=== PATIENT | male | born 1940 | race Caucasian/White ===

== ENCOUNTER → 2016-12-28 | Outpatient (CLI) | payer MEDICARE ==
[~2016-12-28] MED LIST: AMLO5TAB2 PO; ASPI1TAB69 PO; ASPI81TA82 PO; ATOR1TAB18 PO; ATOR80TA PO; CARV6.25 PO; CARV6.252 PO; COQ-100C2 PO; COUM5TAB PO; COUM6TAB PO; D31000CA PO; E-40CAP PO; FISH1000 PO; FISH1200 PO; FOLI400T PO; GARL1CAP PO; HYDR-3516 PO; HYDR12.56 PO; HYDR12.57 PO; IRBE150T15 PO; IRBE150T49 PO; ISOS60 PO; MISC1CAP2 PO; NITR.3 SL; SAW500CA6 PO; TAB-TAB PO; VITA400C5 PO; WALKER WHEELS/F1 MIS; XARE20TA PO; ZINC100T PO; [UNRECOGNIZED DRUG - CODE] PO
[2016-12-28 13:26] LABS: HEMOGLOBIN A1b 1.5 %; HEMOGLOBIN Ao 85.3 %; HEMOGLOBIN P3 5.5 %
== END ==
LOC: CLAB 10:29
PROVIDERS: ATTEND Family Medicine
DX: I10 Essential (primary) hypertension (principal); E78.2 Mixed hyperlipidemia; I25.10 Atherosclerotic heart disease of native coronary artery without angina pectoris; I48.0 Paroxysmal atrial fibrillation; Z12.5 Encounter for screening for malignant neoplasm of prostate; E03.8 Other specified hypothyroidism; E55.9 Vitamin D deficiency, unspecified; Z79.899 Other long term (current) drug therapy
CPT/HCPCS: 36415; 82306; 83036; 84402; 84403; G0103

== ENCOUNTER 2017-01-19 12:19 | Inpatient (IN) | payer MEDICARE ==
[~2017-01-19] VITALS: Ht 167.6 cm; Wt 87.0 kg
[2017-02-01] MEDS ORDERED: FOLI400T PO (15:06)
[2017-02-01] MEDS ORDERED: XARE20TA PO (15:06)
[2017-02-01] MEDS ORDERED: COQ-100C2 PO (15:06)
[2017-02-01] MEDS ORDERED: CARV6.252 PO (15:06)
[2017-02-01] MEDS ORDERED: ATOR1TAB18 PO (15:06)
[2017-02-01] MEDS ORDERED: VITA400C5 PO (15:06)
[2017-02-01] MEDS ORDERED: MISC1CAP2 PO (15:06)
[2017-02-01] MEDS ORDERED: AMLO5TAB2 PO (15:06)
[2017-02-01] MEDS ORDERED: D31000CA PO (15:06)
[2017-02-01] MEDS ORDERED: HYDR12.57 PO (15:06)
[2017-02-01] MEDS ORDERED: FISH1000 PO (15:06)
[2017-02-01] MEDS ORDERED: IRBE150T15 PO (15:06)
[2017-02-01] MEDS ORDERED: GARL1CAP PO (15:06)
[2017-02-01] MEDS ORDERED: ASPI1TAB69 PO (15:06)
--- NOTE | 2017-02-08 10:01 | MH ---
cc: JESSIKA OTERO DATE OF ADMISSION: 02/10/2017 ADMITTING DIAGNOSIS: Severe osteoarthritis of the left knee, varus deformity left knee patellofemoral disorder left knee, pain left knee. HISTORY The patient is a 76-year-old white male who has had a rather lengthy history of pain involving his left knee extending back for at least seven or more years with onset being unrelated to injury. 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 A number of years ago. He did undergo orthopedic evaluation being uncertain with regards to a specific diagnosis but reported that he was advised to consider operative intervention. He elected to continue with conservative management for which he did receive a cortisone injection that he did not find to be of any appreciable benefit. He did not seek any further disposition over the following years and during this period of time he was followed by his primary care physician, while utilizing aspirin for pain management. In the more recent past she was encouraged to proceed with orthopedic evaluation because of increasing symptoms about his left knee and was subsequently seen by the undersigned physician in December of this year. At that time the patient reported ongoing difficulty with regards to all forms of weightbearing activities. His x-ray studies revealed severe degenerative changes with [id number] apposition about the medial compartment associated with a varus deformity of at least 20 degrees magnitude and secondary involvement of the patellofemoral articulation. Findings and treatment options were reviewed with the patient at that time the pros and cons of continuing with conservative management versus operative intervention that would involve a total knee arthroplasty were outlined in detail. Emphasis was made regarding the fact that the decision to proceed with surgery would be left entirely to the patient's discretion. The patient readily admitted that he felt his symptoms had progressed to a point in time where he was desirous of such treatment and in compliance with his wishes he is currently being admitted in order that the above be accomplished. PAST MEDICAL HISTORY/HOSPITALIZATIONS/SURGERIES: Have and deluded to separate cardiac bypass procedures as well as the stent insertion. He has also undergone previous colonoscopy and medical management for an infected left lower extremity at the site of a previous vein graft harvesting as related to his open heart surgery. MEDICAL ILLNESSES: The patient's medical illnesses include hypertension and heart disease. MEDICATIONS current medications 1. Amlodipine 5 mg daily. 2. Carvedilol 6.25 mg twice daily 3. Xarelto 20 mg daily 4. Irbesartan 150 mg daily. 5. Hydrochlorothiazide 12.5 mg daily. 6. Avastin 80 mg daily. 7. CoQ10 8. Garlic. 9. Vitamin E 10. Vitamin D3. 11. Saw palmetto 12. Fish oil. 13. Aspirin. 14. Folic acid ALLERGIES The patient denies any known drug allergies. REVIEW OF SYSTEMS He does wear glasses. He has had a history of migraine headaches. No seizure or syncope. Occasional sinus congestion. There is a history of epistaxis in the past. Diminished auditory acuity more pronounced in the right ear. He wears complete dentures. There is a history of pneumonia and denies cough or tuberculosis. No angina. He has had a heart attack in the past. He is status post open heart surgery as well as stent insertion. Appetite is good bowel movements are regular. There is been no hepatitis, gallbladder disease or ulcers. There is a positive history of hemorrhoids. No urinary tract infection. No kidney stones. Fracture of the left clavicle no psychiatric illness. His remaining review of systems is unremarkable and noncontributory. FAMILY HISTORY The patient has been for over 33 years but he has co habituated with a significant other for more than 30 years. He has three sons and two daughters by his previous marriage all indicated to be in good health. FAMILY HISTORY: Family history is otherwise positive for hypertension, diabetes, tuberculosis, heart and kidney disease. SOCIAL HISTORY The patient completed a tenth grade education. He describes himself as being somewhat retired as a plaster he denies active use of tobacco for more than 30 years but had been greater than a three pack per day user for at least 20 years prior to that time. No ethanol consumption. PHYSICAL EXAMINATION VITAL SIGNS: Height 5 feet 6-[address] to 180 pounds. HEAD, EYES, EARS, NOSE, AND THROAT: an alert, oriented responsive 76-year-old white male who sits quietly upon examination table with no obvious distress. Eyes, nose and throat pupils are equal, round and reactive to light. Extraocular movements full. Sclerae clear. External nares clear. External auditory canals clear. Edentulous. Mucous membranes pink and moist. Pharynx clear. NECK: The neck is supple. Active range of motion without appreciable pain. Carotid pulse bilaterally. Trachea midline. Thyroid without enlargement. LUNGS: Clear to auscultation and percussion. No CVA tenderness. No discomfort throughout the dorsal lumbar spine. Heart: Regular rhythm. No murmur or gallop. ABDOMEN: The abdomen is soft, nontender. Bowel sounds present. RECTAL: Per primary care physician. EXTREMITIES: Left knee. An obvious varus deformity with medial joint line tenderness. Apprehension and compression sign negative. Zero to 105 degrees range of motion with discomfort at the extreme of flexion and subtle suggestion for crepitation. No collateral ligamentous instability. Vin test and drawer sign negative. Pivot shift and Caleb sign positive for medial compartment pain. Straight-leg raising unremarkable at 80 degrees a well-healed surgical wound along the medial aspect of the calf area consistent with graft harvesting for open heart surgery. Distal sensory grossly intact. Antalgic gait. NEUROLOGIC: Cranial nerves II-XII grossly intact. IMPRESSION Severe osteoarthritis of the left knee, varus deformity left knee patellofemoral disorder left knee, pain left knee PLAN Left total knee arthroplasty. The nature of the planned surgical procedure the potential complications and risks associated the expectations of surgery and the consent form were thoroughly reviewed with the patient in the presence of his significant other prior to admission to the hospital. Mr. Andres has indicated his full understanding regarding all of the above and given consent to proceed with treatment as outlined. Medical evaluation and clearance for surgery will be completed by his primary care physician Dr. Gus Hung cardiology clearance per Dr. Pichardo. MD LEROY Page/brian /1:45 PM /10:00 AM
[2017-02-10 06:25] VITALS: BP 168/70; PULSE 58; RESP 20; TEMP 97.9; O2SAT 96
[2017-02-10] MEDS ORDERED: ceFAZolin 2 GM PREMIX 50 ML ONE (06:37)
[2017-02-10] MEDS ORDERED: TRANEXAMIC ACID 1 GM POST-OP IV SCH ×2 (06:45)
[2017-02-10] MEDS ORDERED: TRANEXAMIC ACID 1 GM PRIOR TO PROCEDURE IV SCH ×2 (06:45)
[2017-02-10] MEDS: POVIDONE IODINE 7.5% SCRUB 118 ML BOTTLE TOPICAL SCH (06:45)
[2017-02-10] MEDS ORDERED: ceFAZolin 2 GM PREMIX 50 ML IV SCH (06:45)
[2017-02-10] MEDS ORDERED: fentaNYL CITRATE 250 MCG/5 ML AMP ONE (06:56)
[2017-02-10] MEDS ORDERED: CHLORHEXIDINE GLUCONATE 2 % 1 PACK (2 CLOTHS) TOPICAL PRN (07:00)
[2017-02-10] MEDS ORDERED: SODIUM CHLORID 0.9% 500 ML IV PRN (07:00)
[2017-02-10] MEDS ORDERED: POVIDONE IODINE 5% (ANTISEPSIS KIT) 4 APPLICATIONS EACH NARE PRN (07:00)
[2017-02-10] MEDS ORDERED: INSULIN HUMAN REGULAR 1,000 UNITS/10 ML VIAL SQ PRN (07:00)
[2017-02-10] MEDS ORDERED: LACTATED RINGER'S 1000 ML IV PRN (07:00)
[2017-02-10] MEDS ORDERED: METOPROLOL TARTRATE 25 MG TAB PO PRN (07:00)
[2017-02-10] MEDS ORDERED: FAMOTIDINE 20 MG/2 ML VIAL ONE (07:06)
[2017-02-10] MEDS ORDERED: MIDAZOLAM HCL 2 MG/2 ML VIAL ONE (07:06)
[2017-02-10] MEDS ORDERED: ceFAZolin INJ 1,000 MG VIAL ONE (08:12)
[2017-02-10] MEDS ORDERED: BUPIVACAINE HCL PF 0.5% 30 ML VIAL NERV BLOCK ONE (08:27)
[2017-02-10] MEDS ORDERED: SODIUM CHLORIDE 0.9% FLUSH 5 ML FLUSH IVF PRN (10:00)
[2017-02-10] MEDS ORDERED: ZOLPIDEM TARTRATE 5 MG TAB PO PRN (10:00)
[2017-02-10] MEDS ORDERED: ACETAMINOPHEN/HYDROcodone 325 MG/5 MG TAB PO PRN (10:00)
[2017-02-10] MEDS ORDERED: NALOXONE HCL 0.4 MG/ML AMP IV PRN (10:00)
[2017-02-10] MEDS ORDERED: Post-op Orders (for Pharmacy) MISC XX ONE (10:00)
[2017-02-10] MEDS ORDERED: DOCUSATE SODIUM 100 MG CAP PO PRN (10:00)
[2017-02-10] MEDS ORDERED: diphenhydrAMINE HCL 25 MG CAP PO PRN (10:00)
[2017-02-10] MEDS ORDERED: MISCELLANEOUS PHARMACY INFORMATION XX ONE (10:00)
[2017-02-10] MEDS ORDERED: TRANEXAMIC ACID INJ 1,000 MG in SODIUM CHLORIDE 0.9% INJ 100 ML IV SCH (10:00)
[2017-02-10] MEDS ORDERED: ACETAMINOPHEN 325 MG TAB PO PRN (10:00)
[2017-02-10] MEDS ORDERED: ONDANSETRON HCL 4 MG/2 ML VIAL IVP PRN (10:00)
--- NOTE | 2017-02-10 10:39 | RADRPT ---
EXAM DATE/TIME: 02/10/2017 11:11 [facility] COMPARISON: No previous studies available for comparison. INDICATIONS : Post op left knee replacement. MEDICAL HISTORY : None. SURGICAL HISTORY : None. ENCOUNTER: Initial ACUITY: 1 day PAIN SCORE: 0/10 LOCATION: Left knee FINDINGS: 2 images are performed status post total knee arthroplasty. The hardware is intact and the osseous s tructures are in near-anatomic alignment. There is a 1.1 cm bony fragment adjacent and superior to t he patella. Deep soft tissue gas about the joint space and [address] Multiple cli ps are seen in the distal thigh and proximal leg medially. CONCLUSION: Postoperative changes from total knee arthroplasty. Vignesh Buckley MD on February 10, 2017 at 10:37 Board Certified Radiologist. This report was verified electronically.
[2017-02-10] MEDS ORDERED: MORPHINE SULFATE 30 MG/30 ML PCA IV SCH (11:00)
[2017-02-10] MEDS ORDERED: DO NOT ADM ANY ANTICOAGULANT DRUGS PRN (11:15)
[2017-02-10] MEDS ORDERED: KETOROLAC TROMETHAMINE 60 MG/2 ML (IM) VIAL IM ONE (12:00)
[2017-02-10] MEDS ORDERED: ePHEDrine/NS 25 MG/5 ML SYR IV ONE (12:00)
[2017-02-10] MEDS ORDERED: PROPOFOL 200 MG/20 ML AMP IV ONE (12:00)
[2017-02-10] MEDS ORDERED: ONDANSETRON HCL 4 MG/2 ML VIAL IV PUSH ONE (12:00)
[2017-02-10 13:15] VITALS: BP 123/58; PULSE 55; RESP 18; TEMP 97.5; O2SAT 95
[2017-02-10] MEDS: PCA - TOTAL MG MORPHINE DELIVERED PER SHIFT SCH ×2 (14:00→22:00)
[2017-02-10 16:40] VITALS: BP 120/55; PULSE 64; RESP 20; TEMP 96.7; O2SAT 95
[2017-02-10 18:33] VITALS: O2SAT 95
[2017-02-10 19:57] VITALS: BP 131/56; PULSE 57; RESP 20; TEMP 96.9; O2SAT 95
[2017-02-10] MEDS: SODIUM CHLORIDE 0.9% FLUSH 5 ML FLUSH IVF SCH (20:24)
[2017-02-10] MEDS: DEXT 5%-NACL 0.45% 1000 ML INJ 1,000 ML IV SCH (20:43)
--- NOTE | 2017-02-10 22:26 | PD.CONS ---
History of Present Illness Service primary care Consult Requested By Sarah Leonard MD Reason for Consult medical management Primary Care Physician Gus Hung DO Diagnoses: History of Present Illness pt with [facility] hx of severe debilitating djd left knee Review of Systems Musculoskeletal: COMPLAINS OF: Joint pain, Stiffness, Joint Swelling Past Family Social History Allergies: Coded Allergies: LUIS Inhibitors (Verified Adverse Reaction, Intermediate, 02/10/17) cough Past Medical History a-fib htn hpld Past Surgical History CAD stent CABG Active Ordered Medications Current Medications Medications (Trade) Dose Ordered Sig/Pradip Route PRN Reason Start Time Stop Time Status Last Admin Dose Admin Povidone Iodine 1 applic 1 applic ONCE TOPICAL 02/10/17 06:45 02/13/17 06:44 02/10/17 06:45 Lactated Ringer's 1,000 ml @ 30 mls/hr Q24H PRN IV SEE LABEL COMMENTS 02/10/17 07:00 02/13/17 06:59 02/10/17 06:32 Sodium Chloride (NS 500 ml Inj) 500 ml @ 30 mls/hr [id number] PRN IV SEE LABEL COMMENTS 02/10/17 07:00 02/13/17 06:59 IV Flush (NS Flush) 2 ml UNSCH PRN IVF FLUSH AFTER USING IV ACCESS 02/10/17 10:00 IV Flush 2 ml 2 ml BID IVF 02/10/17 21:00 Cefazolin Sodium/ Sodium Chloride (Ancef Inj/NS Inj) 100 ml @ 200 mls/hr Q6H IV 02/10/17 15:00 02/11/17 03:29 02/10/17 21:17 Rivaroxaban (Xarelto) 10 mg Q24H PO 02/11/17 09:00 Acetaminophen/ Hydrocodone Bitart ([place] 5-325 Mg) 1 tab Q4H PRN PO PAIN LESS THAN 5 ON SCALE 02/10/17 10:00 Acetaminophen/ Hydrocodone Bitart ([place] 5-325 Mg) 2 tab Q4H PRN PO PAIN SCALE 5 TO 10 02/10/17 10:00 Acetaminophen (Tylenol) 650 mg Q6H PRN PO Temp > 101 02/10/17 10:00 Ondansetron HCl (Zofran Inj) 4 mg Q6H PRN IVP NAUSEA OR VOMITING 02/10/17 10:00 Docusate Sodium (Colace) 100 mg BID PRN PO constipation 02/10/17 10:00 Zolpidem Tartrate (Ambien) 5 mg HS PRN PO SLEEP 02/10/17 10:00 Naloxone HCl (Narcan Inj) 0.4 mg UNSCH PRN IV RESPIRATORY RATE LESS THAN 10 02/10/17 10:00 Diphenhydramine HCl (Benadryl) 25 mg Q6H PRN PO ITCHING 02/10/17 10:00 Morphine Sulfate (Morphine 1 Mg/ ml F[employer]ING WORKER) 30 mg UNSCH IV 02/10/17 11:00 02/10/17 11:18 [employer]ING WORKER Dosage Infused (Pha) 1 1 Q8HR .XX 02/10/17 14:00 02/10/17 22:00 Dextrose/Sodium Chloride (D5W-1/2 NS 1000 ml Inj) 1,000 ml @ 125 mls/hr Q8H IV 02/10/17 11:00 02/10/17 20:43 Miscellaneous Information ALL NURSING DEPARTME... UNSCH PRN .XX SEE LABEL COMMENTS 02/10/17 11:15 02/11/17 11:14 Influenza Virus Vaccine (Flu (Quadrivalent) Vaccine Inj) 0.5 ml ONCE ONCE IM 02/11/17 10:00 02/11/17 10:01 Pneumococcal Polyvalent Vaccine (Pneumovax-23 Inj) 25 mcg ONCE ONCE IM 02/11/17 10:00 02/11/17 10:01 Family History father of copd mother with an OR Social History not currently smoking quit many years ago very rare drinker Physical Exam Vital Signs Vital Signs Date Time Temp Pulse Resp B/P Pulse Ox O2 Delivery O2 Flow Rate FiO2 02/10/17 22:00 16 02/10/17 19:57 96.9 57 20 131/56 95 02/10/17 18:33 95 Nasal Cannula 2.00 02/10/17 16:40 96.7 64 20 120/55 95 02/10/17 13:20 Nasal Cannula 2.00 02/10/17 13:15 97.5 55 18 123/58 95 02/10/17 12:45 98.4 55 12 128/69 95 Room Air 02/10/17 12:15 58 12 129/55 95 Room Air 02/10/17 11:18 12 02/10/17 11:15 61 12 140/66 94 Room Air 02/10/17 11:00 57 12 124/48 92 Room Air 02/10/17 10:45 57 12 124/48 92 Room Air 02/10/17 10:30 56 12 144/70 98 Room Air 02/10/17 10:15 57 12 177/76 99 Room Air 02/10/17 10:00 55 12 153/73 98 Room Air 02/10/17 09:46 97.6 65 12 149/86 97 Room Air 02/10/17 06:25 97.9 58 20 168/70 96 Physical Exam GENERAL: This is a well-nourished, well-developed patient, in no apparent distress. SKIN: No rashes, ecchymoses or lesions. Cool and dry. HEAD: Atraumatic. Normocephalic. No temporal or scalp tenderness. EYES: Pupils equal round and reactive. Extraocular motions intact. No scleral icterus. No injection or drainage. ENT: Nose without bleeding, purulent drainage or septal hematoma. Throat without erythema, tonsillar hypertrophy or exudate. Uvula midline. Airway patent. NECK: Trachea midline. No JVD or lymphadenopathy. Supple, nontender, no meningeal signs. CARDIOVASCULAR: Regular rate and rhythm without murmurs, gallops, or rubs. RESPIRATORY: Clear to auscultation. Breath sounds equal bilaterally. No wheezes , rales, or rhonchi. GASTROINTESTINAL: Abdomen soft, non-tender, nondistended. No hepato-splenomegaly , or palpable masses. No guarding. MUSCULOSKELETAL: Extremities without clubbing, cyanosis, or edema. No joint tenderness, effusion, or edema noted.left knee bandaged left calf swollen. NEUROLOGICAL: Awake and alert. Cranial nerves II through XII intact. Motor and sensory grossly within normal limits. Five out of 5 muscle strength in all muscle groups. Normal speech. Laboratory Laboratory Tests Test 02/10/17 06:30 Blood Type O POSITIVE Antibody Screen NEGATIVE Imaging Last 24 hours Impressions Knee X-Ray 02/10/17 0903 Signed Impressions: Service Date/Time: Friday, February 10, 2017 11:11 - CONCLUSION: Postoperative changes from total knee arthroplasty. Vignesh Buckley MD Assessment and Plan Problem List: (1) Total knee replacement status Status: Acute (2) Hypertensive cardiovascular disease Status: Acute Plan: stable (3) Hypercholesteremia Status: Acute Plan: continue xarelto Assessment and Plan sp TKA Discussed Condition With patient Gus Hung DO Feb 10, 2017 22:26
[2017-02-11] VITALS: BP 137/61; PULSE 68; RESP 20; TEMP 97.4; O2SAT 96
[2017-02-11] MEDS: DEXT 5%-NACL 0.45% 1000 ML INJ 1,000 ML IV SCH ×3 (02:12→21:49)
[2017-02-11] MEDS: POVIDONE IODINE 7.5% SCRUB 118 ML BOTTLE TOPICAL SCH (02:36)
[2017-02-11 04:00] VITALS: BP 134/56; PULSE 65; RESP 20; TEMP 98.5; O2SAT 95
[2017-02-11] MEDS: PCA - TOTAL MG MORPHINE DELIVERED PER SHIFT SCH ×3 (05:08→21:49)
[2017-02-11] MEDS ORDERED: HYDR-3516 PO (06:29)
[2017-02-11 06:30] LABS: HEMATOCRIT 32.5 % (39.0-51.0); REVIEW FLAG FINAL
--- NOTE | 2017-02-11 06:31 | HHI.FF ---
Face to Face Verification Diagnosis: (1) DJD (degenerative joint disease) of knee Physical Therapy Gait training Knee: Total knee, Protocol: Left, Full weight bearing Left LE Weight Bearing: WB as tolerated Left LE Range of Motion: Active ROM Nursing Dressing Changes: Daily dressing change I have seen patient Ike Andres on 02/11/17. My clinical findings support the need for the requested home health care services because: Limited ability to care for self High risk of falls I certify that my clinical findings support that this patient is homebound because: Post-op weakness Unsteady gait/balance Unsafe to leave home unassisted Sreedhar Leonard MD Feb 11, 2017 06:31
[2017-02-11] MEDS ORDERED: WALKER WHEELS/F1 MIS (06:33)
[2017-02-11 07:32] VITALS: BP 130/77; PULSE 51; RESP 16; TEMP 97.8; O2SAT 94
--- NOTE | 2017-02-11 08:16 | HHI.PR ---
Subjective Remarks Patient in good spirits. Pain well controlled. Reports that he has been OOB already and doing well. PORTER LUGGAGE as needed. at bedside Objective Vital Signs Date Time Temp Pulse Resp B/P Pulse Ox O2 Delivery O2 Flow Rate FiO2 02/11/17 07:32 97.8 51 16 130/77 94 02/11/17 05:08 18 02/11/17 04:00 98.5 65 20 134/56 95 02/11/17 00:00 97.4 68 20 137/61 96 02/10/17 22:00 16 02/10/17 19:57 96.9 57 20 131/56 95 02/10/17 18:33 95 Nasal Cannula 2.00 02/10/17 16:40 96.7 64 20 120/55 95 02/10/17 13:20 Nasal Cannula 2.00 02/10/17 13:15 97.5 55 18 123/58 95 02/10/17 12:45 98.4 55 12 128/69 95 Room Air 02/10/17 12:15 58 12 129/55 95 Room Air 02/10/17 11:18 12 02/10/17 11:15 61 12 140/66 94 Room Air 02/10/17 11:00 57 12 124/48 92 Room Air 02/10/17 10:45 57 12 124/48 92 Room Air 02/10/17 10:30 56 12 144/70 98 Room Air 02/10/17 10:15 57 12 177/76 99 Room Air 02/10/17 10:00 55 12 153/73 98 Room Air 02/10/17 09:46 97.6 65 12 149/86 97 Room Air I/O 02/10/17 02/10/17 02/10/17 02/11/17 02/11/17 02/11/17 07:00 15:00 23:00 07:00 15:00 23:00 Intake Total 2065 ml 240 ml 220 ml Output Total 200 ml 50 ml 80 ml Balance 1865 ml 190 ml 140 ml Intake Oral 240 ml 220 ml IV Total 565 ml Other 1500 ml Output Drainage Total 100 ml 50 ml 80 ml Estimated Blood Loss 100 ml # Voids 1 1 # Bowel Movements 0 0 Result Diagram: 02/11/17 0550 Imaging Last 48 hours Impressions Knee X-Ray 02/10/17 0923 Signed Impressions: Service Date/Time: Friday, February 10, 2017 11:11 - CONCLUSION: Postoperative changes from total knee arthroplasty. Vignesh Buckley MD Procedures Left TKA Objective Remarks GENERAL: Alert and oriented. SKIN: Warm and dry. HEAD: Normocephalic. EYES: No scleral icterus. No injection or drainage. NECK: Supple, trachea midline. No JVD or lymphadenopathy. CARDIOVASCULAR: Regular rate and rhythm without murmurs, gallops, or rubs. RESPIRATORY: Breath sounds equal bilaterally. No accessory muscle use. GASTROINTESTINAL: Abdomen soft, non-tender, nondistended. MUSCULOSKELETAL: Left knee with mai wrap and brace BACK: Nontender without obvious deformity. No CVA tenderness. Medications and IVs Current Medications Medications (Trade) Dose Ordered Sig/Pradip Route Start Time Stop Time Status Last Admin Povidone Iodine 1 applic 1 applic ONCE TOPICAL 02/10/17 06:45 02/13/17 06:44 02/10/17 06:45 Lactated Ringer's 1,000 ml @ 30 mls/hr Q24H PRN IV 02/10/17 07:00 02/13/17 06:59 02/10/17 06:32 (NS 500 ml Inj) 500 ml @ 30 mls/hr [id number] PRN IV 02/10/17 07:00 02/13/17 06:59 (NS Flush) 2 ml UNSCH PRN IVF 02/10/17 10:00 (NS Flush) 2 ml BID IVF 02/10/17 21:00 (Xarelto) 10 mg Q24H PO 02/11/17 09:00 ([place] 5-325 Mg) 1 tab Q4H PRN PO 02/10/17 10:00 ([place] 5-325 Mg) 2 tab Q4H PRN PO 02/10/17 10:00 (Tylenol) 650 mg Q6H PRN PO 02/10/17 10:00 (Zofran Inj) 4 mg Q6H PRN IVP 02/10/17 10:00 (Colace) 100 mg BID PRN PO 02/10/17 10:00 (Ambien) 5 mg HS PRN PO 02/10/17 10:00 (Narcan Inj) 0.4 mg UNSCH PRN IV 02/10/17 10:00 (Benadryl) 25 mg Q6H PRN PO 02/10/17 10:00 (Morphine 1 Mg/ ml PORTER LUGGAGE) 30 mg UNSCH IV 02/10/17 11:00 02/10/17 11:18 PORTER LUGGAGE Dosage Infused (Pha) 1 1 Q8HR .XX 02/10/17 14:00 02/11/17 05:08 (D5W-1/2 NS 1000 ml Inj) 1,000 ml @ 125 mls/hr Q8H IV 02/10/17 11:00 02/11/17 02:12 Miscellaneous Information ALL NURSING DEPARTME... UNSCH PRN .XX 02/10/17 11:15 02/11/17 11:14 (Flu (Quadrivalent) Vaccine Inj) 0.5 ml ONCE ONCE IM 02/11/17 10:00 02/11/17 10:01 (Pneumovax-23 Inj) 25 mcg ONCE ONCE IM 02/11/17 10:00 02/11/17 10:01 Assessment and Plan Problem List: (1) Total knee replacement status Status: Acute Plan: Patient is POD #1. Pain well controlled. ICE on knee. On Xarelto (2) Hypertensive cardiovascular disease Status: Acute Plan: Blood pressure well controlled 130/77 (3) Hypercholesteremia Status: Acute Plan: On hold will be resumed at discharge. Assessment and Plan Assessment and plan discussed with Dr. Hung. Discussed Condition With nursing and Marisela Crawford CLAUDIA Feb 11, 2017 08:16
[2017-02-11] MEDS: RIVAROXABAN 10 MG TAB PO SCH (08:30)
[2017-02-11] MEDS: HYDROCHLOROTHIAZIDE 12.5 MG CAP PO SCH (08:45)
[2017-02-11] MEDS: DOCUSATE SODIUM 50 MG/SENNA 8.6 MG TAB PO SCH (08:45)
[2017-02-11] MEDS: CARVEDILOL 6.25 MG TAB PO SCH ×2 (08:45→20:37)
[2017-02-11] MEDS: SODIUM CHLORIDE 0.9% FLUSH 5 ML FLUSH IVF SCH ×2 (09:00→21:00)
[2017-02-11] MEDS ORDERED: INFLUENZA VIRUS VACCINE (QUADRIVALENT) 0.5 ML SYR IM ONE (10:00)
[2017-02-11] MEDS ORDERED: PNEUMOCOCCAL POLYVALENT INJ 25 MCG/0.5 ML SYR IM ONE (10:00)
[2017-02-11 11:33] VITALS: BP 132/62; PULSE 55; RESP 16; TEMP 97.2; O2SAT 93
[2017-02-11 13:11] VITALS: O2SAT 94
--- NOTE | 2017-02-11 13:42 | MP ---
cc: JESSIKA LEONARD MD DATE OF SURGERY 02/10/2017 PREOPERATIVE DIAGNOSIS Severe osteoarthritis of the left knee with associated varus deformity, patellofemoral disorder and pain of the left knee POSTOPERATIVE DIAGNOSIS Severe osteoarthritis of the left knee with associated varus deformity, patellofemoral disorder and pain of the left knee PROCEDURE Left total knee arthroplasty SURGEON Jessika Leonard MD ANESTHESIA General endotracheal INDICATIONS A 76-year-old white male with a lengthy history of left knee pain extending back for at least seven or more years with its onset being unrelated to injury. 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 A number of years ago, he did undergo orthopedic evaluation being uncertain with regards to a specific diagnosis, but reporting that he was advised to consider operative intervention at that time. He elected to continue with conservative management for which he did receive cortisone injection that he did not find to be of any appreciable benefit. He did not seek any further disposition over the following years. During this period of time, he was followed by his primary care physician utilizing aspirin for pain management. In the more recent past, he was encouraged to proceed with orthopedic evaluation because of increasing pain about his left knee and was subsequently seen by the undersigned physician in December of this year. At that time, he reported ongoing difficulty with regards to all forms of weightbearing activities. His x-ray studies revealed severe degenerative changes with [id number] apposition about the medial compartment associated with a varus deformity of at least 20 degrees magnitude and secondary involvement of the patellofemoral articulation. Findings and treatment options were reviewed with the patient at that time. The pros and cons of continuing with conservative management versus operative intervention that would involve total knee arthroplasty were outlined in detail. Emphasis was made regarding the fact that the decision to proceed with surgery would be left entirely to the patient's discretion. The patient readily admitted that he felt his symptoms had progressed to a point in time where he was ready to consider such treatment and in compliance with his wishes, he was scheduled for admission at this time in order that total knee replacement be completed. FORMAT Following the induction of satisfactory general anesthesia by endotracheal intubation as completed per the Department of Anesthesia, a tourniquet was established around the proximal portion of the left lower extremity. The extremity proper was isolated with a U-drape thereafter being prepped with Betadine solution and draped into a sterile field in the routine manner. Prior to initiation of the actual procedure, the standard time-out protocol was completed. All parameters were appropriately addressed and confirmed by operating room personnel. The extremity was elevated for approximately one minute and the tourniquet thus inflated to 250 mmHg pressure. A sharp skin incision was initiated midline over the anterior aspect of the knee and developed underlying subcutaneous tissue with hemostasis maintained by electrocautery. By deepening dissection, the anterior capsule was exposed. A medial capsulotomy completed and the patella subluxed in a lateral orientation. Examination of the joint space revealed severe tricompartmental degenerative changes with absence of the anterior cruciate ligament. Medial and lateral meniscus structures were sharply excised. The articular surface of the patella was resected with power saw. The three holed guide was utilized for establishing post holes. A centering hole was placed in the distal aspect of the femur allowing positioning of the intramedullary guide. The distal femoral cutting jig was attached and the distal femur resected. AP measurement noted 65 mm sizing to be appropriate. The matching cutting block was positioned. Anterior, posterior and chamfer cuts were completed. The tibial plateau was thereafter subluxed in an anterior orientation allowing positioning of the extramedullary guide. The tibial plateau was resected and measured with 70 mm sizing determined to be appropriate. A trial reduction followed utilizing a 65 mm anatomic femoral component, a 75 mm tibial base with both 12 and 16 mm bearing inserts trialed, the 16 mm thickness was determined to be the more favorable fit. The knee was carried through a passive range of motion, stability was demonstrated at both zero and 90 degrees flexion to varus/valgus stress. Orientation was confirmed as appropriate with measurement of the pelvic guide through the mechanical axis of the knee. Trial reduction followed utilizing a 34 mm standard patellar button. Again good tracking demonstrated with no tendency toward subluxation. All trial components being removed, the remaining portion of the proximal tibia was prepared for insertion of the permanent component. An autogenous bone plug was inserted into the distal femoral guide hole and thereafter a preparation of cobalt bone cement was utilized in inserting knee components in a sequential fashion which included a 75 mm fixed cruciate tibial plate to which a 16 mm Vanguard tibial bearing insert was secured with locking farrell. The 65 mm Vanguard femoral component was firmly seated onto the distal femur excess cement being removed, the knee was brought to full extension and thereafter the 34 mm standard three post patellar button was attached and maintained in place with patellar clamp while cement hardening was completed. Final range of motion assessment noted good tracking and stability throughout the knee. Irrigation repeated with hemostasis maintained. Autovac drain tubes were inserted through superior stab wounds. The capsule was repaired with 0 Vicryl suture. The remaining portion of the wound was closed in layers in the routine manner, skin margins being reapproximated with a running subcuticular 3-0 Vicryl suture over which Steri-Strips were applied. Xeroform gauze and a bulky dry sterile dressing placed. Tourniquet deflated after 56 minutes of tourniquet time. The extremity being supported by canvas knee splint, anesthesia was discontinued and the patient thus transferred to a hospital bed and returned to the recovery room in satisfactory condition having tolerated his operative procedure well. Estimated blood loss approximately 100 cc. All implants were of the [employer] crossing watchman. MD LEROY Page/DANI /9:41 AM /1:30 PM
[2017-02-11 20:32] VITALS: BP 158/64; PULSE 68; RESP 18; TEMP 100.5; O2SAT 94
[2017-02-12] VITALS (7 sets, daily range): BP systolic 145–169; BP diastolic 64–72; PULSE 60–73; RESP 17–18; TEMP 98.7–100.7; O2SAT 94–98
[2017-02-12] MEDS: DEXT 5%-NACL 0.45% 1000 ML INJ 1,000 ML IV SCH ×3 (03:00→19:00)
[2017-02-12] MEDS: PCA - TOTAL MG MORPHINE DELIVERED PER SHIFT SCH ×3 (06:00→22:00)
[2017-02-12] MEDS: POVIDONE IODINE 7.5% SCRUB 118 ML BOTTLE TOPICAL SCH (06:45)
[2017-02-12 08:05] LABS: HEMATOCRIT 32.4 % (39.0-51.0); MEAN CELL VOLUME 89.1 FL (80.0-100.0); MEAN CORPUSCULAR HGB CONC 33.7 % (32.0-36.0); PLATELET COUNT 126 TH/MM3 (150-450); RED BLOOD COUNT 3.63 MIL/MM3 (4.50-5.90); RED CELL DISTRIBUTION WIDTH 13.8 % (11.6-17.2); REVIEW FLAG FINAL
--- NOTE | 2017-02-12 08:20 | HHI.PR ---
Subjective Remarks Pain well controlled. Reports low grade fever last night also cough Objective Vital Signs Date Time Temp Pulse Resp B/P Pulse Ox O2 Delivery O2 Flow Rate FiO2 02/12/17 07:29 99.1 64 18 156/68 95 02/12/17 06:00 18 02/12/17 04:20 100.7 73 17 150/69 95 02/12/17 00:35 100.3 70 17 145/64 94 02/11/17 21:49 18 02/11/17 20:32 100.5 68 18 158/64 94 02/11/17 20:00 94 Room Air 02/11/17 17:42 21 02/11/17 13:11 94 21 02/11/17 11:33 97.2 55 16 132/62 93 02/11/17 08:53 Room Air I/O 02/11/17 02/11/17 02/11/17 02/12/17 02/12/17 02/12/17 07:00 15:00 23:00 07:00 15:00 23:00 Intake Total 220 ml 2005 ml 604 ml 374 ml Output Total 80 ml 170 ml 30 ml 15 ml Balance 140 ml 1835 ml 574 ml 359 ml Intake Oral 220 ml 220 ml 240 ml 120 ml IV Total 1785 ml 364 ml 254 ml Output Drainage Total 80 ml 170 ml 30 ml 15 ml # Voids 3 2 5 # Bowel Movements 0 0 Result Diagram: 02/12/17 0745 Procedures Left TKA Objective Remarks GENERAL: Alert and oriented. SKIN: Warm and dry. HEAD: Normocephalic. EYES: No scleral icterus. No injection or drainage. NECK: Supple, trachea midline. No JVD or lymphadenopathy. CARDIOVASCULAR: Regular rate and rhythm without murmurs, gallops, or rubs. RESPIRATORY: Breath sounds equal bilaterally. No accessory muscle use. GASTROINTESTINAL: Abdomen soft, non-tender, nondistended. MUSCULOSKELETAL: Left knee with mai wrap and brace BACK: Nontender without obvious deformity. No CVA tenderness. Medications and IVs Current Medications Medications (Trade) Dose Ordered Sig/Pradip Route Start Time Stop Time Status Last Admin Povidone Iodine 1 applic 1 applic ONCE TOPICAL 02/10/17 06:45 02/13/17 06:44 02/10/17 06:45 Lactated Ringer's 1,000 ml @ 30 mls/hr Q24H PRN IV 4/19/17 07:00 02/13/17 06:59 02/10/17 06:32 (NS 500 ml Inj) 500 ml @ 30 mls/hr [id number] PRN IV 02/10/17 07:00 02/13/17 06:59 (NS Flush) 2 ml UNSCH PRN IVF 02/10/17 10:00 (NS Flush) 2 ml BID IVF 02/10/17 21:00 (Xarelto) 10 mg Q24H PO 02/11/17 09:00 02/11/17 08:30 ([place] 5-325 Mg) 1 tab Q4H PRN PO 02/10/17 10:00 ([place] 5-325 Mg) 2 tab Q4H PRN PO 02/10/17 10:00 (Tylenol) 650 mg Q6H PRN PO 02/10/17 10:00 (Zofran Inj) 4 mg Q6H PRN IVP 02/10/17 10:00 (Colace) 100 mg BID PRN PO 02/10/17 10:00 02/12/17 06:34 (Ambien) 5 mg HS PRN PO 02/10/17 10:00 (Narcan Inj) 0.4 mg UNSCH PRN IV 02/10/17 10:00 (Benadryl) 25 mg Q6H PRN PO 02/10/17 10:00 (Morphine 1 Mg/ ml MUTUAL FUND SALES AGENT) 30 mg UNSCH IV 02/10/17 11:00 02/10/17 11:18 MUTUAL [employer]D SALES AGENT Dosage Infused (Pha) 1 1 Q8HR .XX 02/10/17 14:00 02/12/17 06:00 (D5W-1/2 NS 1000 ml Inj) 1,000 ml @ 125 mls/hr Q8H IV 02/10/17 11:00 02/11/17 21:49 (Winnie-Colace) 1 tab DAILY PO 02/11/17 09:00 02/11/17 08:45 (Coreg) 6.25 mg BID PO 02/11/17 09:00 02/11/17 20:37 (Microzide) 12.5 mg DAILY PO 02/11/17 09:00 02/11/17 08:45 Assessment and Plan Problem List: (1) Total knee replacement status Status: Acute Plan: Patient is POD #. Pain well controlled. On Xarelto DVT prophylaxis (2) Hypertensive cardiovascular disease Status: Acute Plan: Blood pressure well controlled 118/74 (3) Hypercholesteremia Status: Acute Plan: On hold will be resumed at discharge. (4) Fever Status: Acute Plan: Low grade temp at 100.7 last night. IS encouraged. Patient with cough. Will obtain chest xray. Labs pending Assessment and Plan Assessment and plan discussed with Dr. Hung. Discharge Planning Discharge to skilled nurse facility either TCU or [facility] snf Marisela Crawford Feb 12, 2017 08:20
[2017-02-12 08:50] LABS: BICARBONATE 26.8 MEQ/L (21.0-32.0); POTASSIUM 3.7 MEQ/L (3.5-5.1)
[2017-02-12] MEDS: HYDROCHLOROTHIAZIDE 12.5 MG CAP PO SCH (08:51)
[2017-02-12] MEDS: CARVEDILOL 6.25 MG TAB PO SCH ×2 (08:51→21:18)
[2017-02-12] MEDS: RIVAROXABAN 10 MG TAB PO SCH (08:51)
[2017-02-12] MEDS: DOCUSATE SODIUM 50 MG/SENNA 8.6 MG TAB PO SCH (08:51)
[2017-02-12] MEDS: SODIUM CHLORIDE 0.9% FLUSH 5 ML FLUSH IVF SCH ×2 (08:52→21:00)
--- NOTE | 2017-02-12 11:44 | RADRPT ---
EXAM DATE/TIME: 02/12/2017 10:27 [place] COMPARISON: CHEST PA & LAT, February 01, 2017, 11:48. INDICATIONS : Short of breath, cough. MEDICAL HISTORY : Hypertension. Cardiovascular disease. SURGICAL HISTORY : CABG. loop recorder ENCOUNTER: Subsequent ACUITY: 3 days PAIN SCORE: 0/10 LOCATION: Bilateral chest FINDINGS: There is a tiny right pleural effusion. There is evidence for prior median sternotomy. Heart and medi astinum are unremarkable for technique. Cardiac loop recorder device is seen. Lungs are clear. Degene rative changes and hypertrophic changes are seen within the disc space and facets of the thoracic spi ne. CONCLUSION: Tiny right pleural effusion. Lavinia Grijalva MD on February 12, 2017 at 11:41 Board Certified Radiologist. This report was verified electronically.
[2017-02-12] MEDS: ACETAMINOPHEN/HYDROcodone 325 MG/5 MG TAB PO PRN (23:32)
[2017-02-13] VITALS: BP 151/66; PULSE 75; RESP 18; TEMP 100.5; O2SAT 94
[2017-02-13] MEDS: DEXT 5%-NACL 0.45% 1000 ML INJ 1,000 ML IV SCH ×2 (03:00→11:00)
[2017-02-13 04:15] VITALS: TEMP 98.8
[2017-02-13] MEDS: PCA - TOTAL MG MORPHINE DELIVERED PER SHIFT SCH (05:51)
[2017-02-13 08:00] VITALS: BP 154/69; PULSE 75; RESP 18; TEMP 99.5; O2SAT 94
[2017-02-13] MEDS: DOCUSATE SODIUM 50 MG/SENNA 8.6 MG TAB PO SCH (08:48)
[2017-02-13] MEDS: SODIUM CHLORIDE 0.9% FLUSH 5 ML FLUSH IVF SCH (09:00)
[2017-02-13 09:14] VITALS: O2SAT 94
[2017-02-13] MEDS: RIVAROXABAN 10 MG TAB PO SCH (10:05)
[2017-02-13] MEDS: HYDROCHLOROTHIAZIDE 12.5 MG CAP PO SCH (10:05)
[2017-02-13] MEDS: CARVEDILOL 6.25 MG TAB PO SCH (10:05)
[2017-02-13] MEDS: ACETAMINOPHEN/HYDROcodone 325 MG/5 MG TAB PO PRN (10:06)
--- NOTE | 2017-02-13 11:52 | HHI.PR ---
Subjective Remarks pt scheduled to dc to TCU has developed cough cxr done Objective Vital Signs Date Time Temp Pulse Resp B/P Pulse Ox O2 Delivery O2 Flow Rate FiO2 02/13/17 08:00 99.5 75 18 154/69 94 02/13/17 05:51 20 02/13/17 04:15 98.8 02/13/17 00:00 100.5 75 18 151/66 94 02/12/17 22:00 18 02/12/17 20:00 96 Room Air 02/12/17 20:00 99.9 69 18 164/72 96 02/12/17 18:40 98 21 02/12/17 15:17 99.4 68 18 156/72 98 I/O 02/12/17 02/12/17 02/12/17 02/13/17 02/13/17 02/13/17 07:00 15:00 23:00 07:00 15:00 23:00 Intake Total 374 ml 480 ml 120 ml Output Total 15 ml Balance 359 ml 480 ml 120 ml Intake Oral 120 ml 480 ml 120 ml IV Total 254 ml Output Drainage Total 15 ml # Voids 5 3 1 2 # Bowel Movements 0 0 1 Result Diagram: 02/12/17 0745 02/12/17 0745 Imaging cxr tiny right pleural effusion Procedures Left TKA Objective Remarks CONSTITUTIONAL/GENERAL: This is an adequately nourished patient, in no apparent distress. TUBES/LINES/DRAINS: SKIN: No jaundice, rashes, or lesions. Ecchymoses on upper extremities. No wounds seen anteriorly. Skin temperature appropriate. Not diaphoretic. HEAD: Atraumatic. Normocephalic. EYES: Pupils equal and round and reactive. Extraocular motions intact. No scleral icterus. No injection or drainage. Fundi not examined. ENT: Hearing grossly normal. Nose without bleeding or purulent drainage. Throat without visible erythema, exudates, masses, or lesions. NECK: Trachea midline. Supple, nontender. No palpable thyroid enlargement or nodularity. CARDIOVASCULAR: Regular rate and rhythm without murmurs, gallops, or rubs. No JVD. Peripheral pulses symmetric. RESPIRATORY/CHEST: Symmetric, unlabored respirations. Clear to auscultation. Breath sounds equal bilaterally. No wheezes, rales, or rhonchi.occasional cough GASTROINTESTINAL: Abdomen soft, non-tender, nondistended. No hepato-splenomegaly , or palpable masses. No guarding. Bowel sounds present. GENITOURINARY: Without palpable bladder distension. Foster catheter in place. MUSCULOSKELETAL: Extremities without clubbing, cyanosis, or edema. healing r TKA No calf tenderness. No mottling or clubbing. LYMPHATICS: No palpable cervical or supraclavicular adenopathy. NEUROLOGICAL: Awake and alert. Motor and sensory grossly within normal limits. Follows commands. Cognitively sharp. Moves all extremities. PSYCHIATRIC: No obvious anxiety/depression. no apparent hallucinations or other psychotic thought process. Medications and IVs Current Medications Medications (Trade) Dose Ordered Sig/Pradip Route PRN Reason Start Time Stop Time Status Last Admin Dose Admin IV Flush (NS Flush) 2 ml UNSCH PRN IVF FLUSH AFTER USING IV ACCESS 02/10/17 10:00 IV Flush (NS Flush) 2 ml BID IVF 02/10/17 21:00 02/13/17 09:00 Rivaroxaban (Xarelto) 10 mg Q24H PO 02/11/17 09:00 02/13/17 10:05 Acetaminophen/ Hydrocodone Bitart ([place] 5-325 Mg) 1 tab Q4H PRN PO PAIN LESS THAN 5 ON SCALE 02/10/17 10:00 Acetaminophen/ Hydrocodone Bitart ([place] 5-325 Mg) 2 tab Q4H PRN PO PAIN SCALE 5 TO 10 02/10/17 10:00 02/13/17 10:06 Acetaminophen (Tylenol) 650 mg Q6H PRN PO Temp > 101 02/10/17 10:00 Ondansetron HCl (Zofran Inj) 4 mg Q6H PRN IVP NAUSEA OR VOMITING 02/10/17 10:00 Docusate Sodium (Colace) 100 mg BID PRN PO constipation 02/10/17 10:00 02/12/17 06:34 Zolpidem Tartrate (Ambien) 5 mg HS PRN PO SLEEP 02/10/17 10:00 Naloxone HCl (Narcan Inj) 0.4 mg UNSCH PRN IV RESPIRATORY RATE LESS THAN 10 02/10/17 10:00 Diphenhydramine HCl (Benadryl) 25 mg Q6H PRN PO ITCHING 02/10/17 10:00 Morphine Sulfate (Morphine 1 Mg/ ml RUBBER STAMP DIES INSPECTOR) 30 mg UNSCH IV 02/10/17 11:00 02/10/17 11:18 RUBBER STAMP DIES INSPECTOR Dosage Infused (Pha) 1 1 Q8HR .XX 02/10/17 14:00 02/13/17 05:51 Dextrose/Sodium Chloride (D5W-1/2 NS 1000 ml Inj) 1,000 ml @ 125 mls/hr Q8H IV 02/10/17 11:00 02/11/17 21:49 Senna/Docusate Sodium (Winnie-Colace) 1 tab DAILY PO 02/11/17 09:00 02/12/17 08:51 Carvedilol (Coreg) 6.25 mg BID PO 02/11/17 09:00 02/13/17 10:05 Hydrochlorothiazide (Microzide) 12.5 mg DAILY PO 02/11/17 09:00 02/13/17 10:05 Assessment and Plan Problem List: (1) Total knee replacement status Status: Acute (2) Hypertensive cardiovascular disease Status: Acute Plan: stable (3) Hypercholesteremia Status: Acute Plan: continue xarelto Assessment and Plan sp TKA plan will start ceftin and duonebs pt stable for transfer to TCU which is a hospital facility I will follow him there Discussed Condition With patient and family Gus Hung DO Feb 13, 2017 11:52
[2017-02-13 12:00] VITALS: BP 108/45; PULSE 61; RESP 18; TEMP 99.3; O2SAT 95
[2017-02-13] MEDS ORDERED: RESP: ALBUTEROL 2.5 MG/IPRATROPIUM 0.5 MG NEB (PRN) NEB (12:00)
[2017-02-13] MEDS ORDERED: CEFUROXIME AXETIL 500 MG TAB PO SCH (21:00)
--- NOTE | 2017-02-17 09:33 | MD ---
cc: ANU KEITA M.D.,JESSIKA CANALES D.O. ADMISSION DATE: 02/10/2017 DISCHARGE DATE: 02/13/2017 ADMITTING DIAGNOSIS Severe osteoarthritis of the left knee, varus deformity left knee, patellofemoral disorder left knee, pain left knee. DISCHARGE DIAGNOSIS Severe osteoarthritis of the left knee, varus deformity left knee, patellofemoral disorder left knee, pain left knee. HISTORY The patient is a 76-year-old white male with a lengthy history of pain involving his left knee extending back for at least seven or more years with onset being unrelated to injury. 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 A number of years ago he did undergo orthopedic evaluation being uncertain with regards to the specific diagnosis, but reports that he was advised to consider operative intervention. He continued with conservative management receiving cortisone injections that did not prove to be of any appreciable benefit. He did not seek any further disposition over the following years. During this period of time he was followed by his primary care physician utilizing aspirin for pain management. In the more recent past he was encouraged to proceed with orthopedic evaluation because of increasing symptoms involving his left knee and was subsequently seen by the undersigned physician in December of this year. At that time the patient reported ongoing difficulty with regards to all forms of weightbearing activities. His x-ray studies revealed severe degenerative changes with [id number] apposition about the medial compartment associated with a varus deformity of at least 20 degrees magnitude and secondary involvement of the patellofemoral articulation. Findings and treatment options were reviewed with the patient at that time. The pros and cons of continuing with conservative management versus operative intervention involving total knee arthroplasty were outlined in detail. Emphasis was made regarding the fact that the decision to proceed with surgery would be left entirely to the patient's discretion. The patient readily admitted that he felt his symptoms had progressed to a point in time where he was desirous of such treatment and in compliance with his wishes he was scheduled for admission at this time in order that the above be accomplished. His physical examination at the time of admission revealed an obvious varus deformity about the left knee with medial joint line tenderness. Apprehension and compression sign were negative. A 0-105 degrees range of motion with discomfort at the extreme of flexion and suggestion for crepitation. No collateral ligamentous instability. Vin test and drawer sign negative. Pivot shift and Caleb sign positive for medial compartment pain. Straight-leg raising unremarkable at 80 degrees. A well-healed surgical wound along the medial aspect of the calf area consistent with graft harvesting for open heart surgery. Distal sensory grossly intact. Antalgic gait. HOSPITAL COURSE Prior to admission to the hospital the patient had undergone medical evaluation and clearance for surgery as completed by his primary care physician, Dr. Gus Hung, cardiology clearance per Dr. Keita. The patient was taken to the operating room on 10 February 2017 and on that date underwent a left total knee arthroplasty completed in an uncomplicated manner. The patient was noted to have tolerated his operative procedure well and his postoperative course was stable thereafter. Hemoglobin and hematocrit assessment postoperatively was 10.8 and 32.5 respectively. The patient was progressively mobilized under the guidance of physical therapy being permitted weightbearing to tolerance about the left lower extremity. Follow-up examination of his surgical wound noted it to be intact, healing favorably with no evidence of infection. Medical follow-up per the hospitalist service. DVT prophylaxis initiated. Body Mechanic consulted to assist with discharge planning. The patient agreed for temporary rehab placement. Plans were to be finalized in this regard through the Body Mechanic Department and pending medical clearance he was scheduled for transfer on the third postoperative day at which time he was noted to be making steady progress with regards to his rehab program. He was scheduled to be seen in office follow-up in approximately 4 weeks. His condition at the time of discharge was stable, prognosis favorable. DISCHARGE MEDICATIONS Hydrocodone 5/325, #60. The patient was also to continue with Xarelto 20 mg daily that he had been taking preoperatively. Jessika Leonard MD NBS/BT /6:34 AM /9:17 AM
== END 2017-02-13 14:20 | DRG 470 ==
LOC: HSDI 02-10 05:33 → N06B 02-10 13:20
PROVIDERS: ADMIT Orthopaedic Surgery; ATTEND Orthopaedic Surgery
PROC: 3E0T3CZ (ICD-10-PCS; 2017-02-10)
PROC: 0SRD0J9 Replacement of Left Knee Joint with Synthetic Substitute, Cemented, Open Approach (ICD-10-PCS; principal; 2017-02-10 07:06)
DX: M17.12 Unilateral primary osteoarthritis, left knee (principal); I25.810 Atherosclerosis of coronary artery bypass graft(s) without angina pectoris; I11.9 Hypertensive heart disease without heart failure; I48.91 Unspecified atrial fibrillation; M21.162 Varus deformity, not elsewhere classified, left knee; Z95.1 Presence of aortocoronary bypass graft; Z79.01 Long term (current) use of anticoagulants
CPT/HCPCS: 71020; 73560; 80048; 85014; 85018; 85027; 86850; 86900; 86901; 88305; 88307; 88311; 90471; 90732; 94150; C1776; G0009; J0690; J1885; J2250; J2270; J2405; J3010; J7120; L1830

== ENCOUNTER → 2017-01-21 | Outpatient (CLI) | payer MEDICARE ==
[2017-01-21 11:08] LABS: AUTOMATED NEUTROPHIL # 3.7 TH/MM3 (1.8-7.7); BASOPHIL # 0.1 TH/MM3 (0-0.2); BASOPHIL % 1.1 % (0.0-2.0); EOSINOPHIL # 0.6 TH/MM3 (0-0.4); EOSINOPHIL % 8.4 % (0.0-4.0); HEMATOCRIT 41.5 % (39.0-51.0); HEMO FLAGS DIFF FINAL; LYMPH % 29.9 % (9.0-44.0); LYMPHOCYTE # 2.1 TH/MM3 (1.0-4.8); MEAN CELL VOLUME 88.9 FL (80.0-100.0); MEAN CORPUSCULAR HEMOGLOBIN 30.8 PG (27.0-34.0); MEAN CORPUSCULAR HGB CONC 34.7 % (32.0-36.0); MONO % 6.9 % (0.0-8.0); NEUT % 53.7 % (16.0-70.0); PLATELET COUNT 183 TH/MM3 (150-450); RED BLOOD COUNT 4.66 MIL/MM3 (4.50-5.90); RED CELL DISTRIBUTION WIDTH 13.7 % (11.6-17.2); WHITE BLOOD COUNT 6.9 TH/MM3 (4.0-11.0)
[2017-01-21 11:32] LABS: ALT (GPT) 26 U/L (12-78); ANION GAP 7 MEQ/L (5-15); AST (GOT) 20 U/L (15-37); BICARBONATE 28.2 MEQ/L (21.0-32.0); BLOOD UREA NITROGEN 22 MG/DL (7-18); CHLORIDE 106 MEQ/L (98-107); GLOMERULAR FILTRATION RATE 56 ML/MIN (>89); GLUCOSE,FASTING 97 MG/DL (74-99); POTASSIUM 3.8 MEQ/L (3.5-5.1); SODIUM (NA) 141 MEQ/L (136-145)
[2017-01-21 11:34] LABS: ALKALINE PHOSPHATASE 86 U/L (45-117)
== END ==
LOC: CLAB 10:44
PROVIDERS: ATTEND Family Medicine
DX: I10 Essential (primary) hypertension (principal); Z79.899 Other long term (current) drug therapy
CPT/HCPCS: 36415; 80053; 85025

== ENCOUNTER → 2017-02-01 | Outpatient (CLI) | payer MEDICARE ==
[2017-02-01 11:34] LABS: BASOPHIL # 0.1 TH/MM3 (0-0.2); BASOPHIL % 0.8 % (0.0-2.0); EOSINOPHIL # 0.6 TH/MM3 (0-0.4); EOSINOPHIL % 8.1 % (0.0-4.0); HEMATOCRIT 41.1 % (39.0-51.0); HEMO FLAGS DIFF FINAL; LYMPH % 26.2 % (9.0-44.0); LYMPHOCYTE # 1.8 TH/MM3 (1.0-4.8); MEAN CORPUSCULAR HEMOGLOBIN 29.9 PG (27.0-34.0); MEAN CORPUSCULAR HGB CONC 33.2 % (32.0-36.0); MONO % 7.3 % (0.0-8.0); NEUT % 57.6 % (16.0-70.0); PLATELET COUNT 163 TH/MM3 (150-450); RED BLOOD COUNT 4.57 MIL/MM3 (4.50-5.90); RED CELL DISTRIBUTION WIDTH 13.8 % (11.6-17.2); WHITE BLOOD COUNT 6.9 TH/MM3 (4.0-11.0)
[2017-02-01 11:36] LABS: INTERNATIONAL NORMALIZED RATIO 1.4 RATIO; PROTHROMBIN TIME - PATIENT 15.8 SEC (9.8-11.6)
[2017-02-01 11:49] LABS: POTASSIUM 4.2 MEQ/L (3.5-5.1)
--- NOTE | 2017-02-01 12:43 | RADRPT ---
EXAM DATE/TIME: 02/01/2017 11:48 [facility] COMPARISON: No previous studies available for comparison. INDICATIONS : Evaluate for pneumonia, pneumothorax or communicable disease. Pre op left knee replacement. MEDICAL HISTORY : Cardiovascular disease. SURGICAL HISTORY : CABG. Loop recorder ENCOUNTER: Initial ACUITY: 1 day PAIN SCORE: 0/10 LOCATION: Bilateral chest FINDINGS: Post CABG changes are noted in the cardia mediastinal silhouette. Heart remains normal in size. Lungs are well-expanded and clear. Thoracic cage is intact. CONCLUSION: Status post CABG. No evidence of acute process. Artemio Lugo MD on February 01, 2017 at 12:40 Board Certified Radiologist. This report was verified electronically.
[2017-02-01 12:52] LABS: BACTERIA, URINE RARE /hpf; BLOOD, URINE SMALL (NEG); COMMENT (UR) CULTURE INDICATED; CULTURE IF INDICATED CULTURE INDICATED; GLUCOSE,URINE NEG (NEG); KETONE, URINE NEG (NEG); MUCUS URINE FEW /lpf (OCC); NITRITE,URINE NEG (NEG); PH, URINE 5.5 (5.0-8.5); SQUAMOUS EPITHELIAL CELL URINE <1 /hpf (0-5); URINE COLOR YELLOW (YELLW/STRAW)
== END ==
LOC: CPRE 10:46
PROVIDERS: ATTEND Orthopaedic Surgery
DX: Z01.811 Encounter for preprocedural respiratory examination (principal); Z01.812 Encounter for preprocedural laboratory examination; M17.12 Unilateral primary osteoarthritis, left knee; R82.90 Unspecified abnormal findings in urine; Z79.01 Long term (current) use of anticoagulants
CPT/HCPCS: 36415; 71020; 80048; 81001; 85025; 85610; 87086

== ENCOUNTER → 2017-04-21 | Outpatient (CLI) | payer MEDICARE ==
[~2017-04-21] MED LIST changes: -ASPI81TA82 PO; -ATOR80TA PO; -CARV6.25 PO; -COUM5TAB PO; -COUM6TAB PO; -E-40CAP PO; -FISH1200 PO; -HYDR12.56 PO; -IRBE150T49 PO; -ISOS60 PO; -NITR.3 SL; -SAW500CA6 PO; -TAB-TAB PO; -ZINC100T PO; -[UNRECOGNIZED DRUG - CODE] PO
[2017-04-21 12:17] LABS: AUTOMATED NEUTROPHIL # 5.3 TH/MM3 (1.8-7.7); BASOPHIL # 0.1 TH/MM3 (0-0.2); BASOPHIL % 0.7 % (0.0-2.0); EOSINOPHIL # 0.5 TH/MM3 (0-0.4); EOSINOPHIL % 6.2 % (0.0-4.0); HEMATOCRIT 38.7 % (39.0-51.0); HEMO FLAGS DIFF FINAL; LYMPH % 19.9 % (9.0-44.0); LYMPHOCYTE # 1.6 TH/MM3 (1.0-4.8); MEAN CELL VOLUME 89.1 FL (80.0-100.0); MEAN CORPUSCULAR HGB CONC 32.5 % (32.0-36.0); MONO % 6.4 % (0.0-8.0); NEUT % 66.8 % (16.0-70.0); PLATELET COUNT 188 TH/MM3 (150-450); RED BLOOD COUNT 4.34 MIL/MM3 (4.50-5.90); RED CELL DISTRIBUTION WIDTH 13.7 % (11.6-17.2)
[2017-04-21 12:44] LABS: ANION GAP 7 MEQ/L (5-15); AST (GOT) 18 U/L (15-37); BICARBONATE 27.3 MEQ/L (21.0-32.0); BLOOD UREA NITROGEN 22 MG/DL (7-18); CHLORIDE 108 MEQ/L (98-107); GLOMERULAR FILTRATION RATE 71 ML/MIN (>89); GLUCOSE,FASTING 93 MG/DL (74-99); POTASSIUM 3.9 MEQ/L (3.5-5.1); SODIUM (NA) 142 MEQ/L (136-145)
[2017-04-21 12:55] LABS: ALKALINE PHOSPHATASE 120 U/L (45-117); ALT (GPT) 29 U/L (12-78); HDL CHOLESTEROL 45.4 MG/DL (40.0-60.0); LDL CHOLESTEROL 73 MG/DL (0-99); TOTAL BILIRUBIN ADULT 0.6 MG/DL (0.2-1.0)
== END ==
LOC: CLAB 11:40
PROVIDERS: ATTEND Internal Medicine Interventional Cardiology
DX: I25.10 Atherosclerotic heart disease of native coronary artery without angina pectoris (principal); I13.10 Hypertensive heart and chronic kidney disease without heart failure, with stage 1 through stage 4 chronic kidney disease, or unspecified chronic kidney disease; N18.9 Chronic kidney disease, unspecified; I48.0 Paroxysmal atrial fibrillation; E78.2 Mixed hyperlipidemia; M79.1 Myalgia; E03.8 Other specified hypothyroidism; Z79.899 Other long term (current) drug therapy
CPT/HCPCS: 36415; 80053; 80061; 84443; 85025

== ENCOUNTER → 2017-06-09 | Outpatient (CLI) | payer MEDICARE ==
[2017-06-09 11:34] LABS: FREE T3 2.96 PG/ML (2.18-3.98); THYROXINE (T4) 6.9 MCG/DL (4.5-12.1)
[2017-06-09 16:44] LABS: HEMOGLOBIN A1a 0.9 %; HEMOGLOBIN A1b 1.5 %; HEMOGLOBIN Ao 85.9 %; HEMOGLOBIN LA1C 1.9 %; HEMOGLOBIN P3 3.9 %
== END ==
LOC: CLAB 10:41
PROVIDERS: ATTEND Family Medicine
DX: E10.8 Type 1 diabetes mellitus with unspecified complications (principal); E03.8 Other specified hypothyroidism; Z79.899 Other long term (current) drug therapy
CPT/HCPCS: 36415; 83036; 84436; 84443; 84481

== ENCOUNTER → 2017-07-16 | Outpatient (CLI) | payer MEDICARE ==
[2017-07-16 09:06] LABS: FREE T3 3.41 PG/ML (2.18-3.98); FREE T4 0.87 NG/DL (0.76-1.46)
== END ==
LOC: CLAB 07:51
PROVIDERS: ATTEND Family Medicine
DX: E03.8 Other specified hypothyroidism (principal); Z79.899 Other long term (current) drug therapy
CPT/HCPCS: 36415; 84439; 84443; 84481

== ENCOUNTER → 2017-10-04 | Outpatient (CLI) | payer MEDICARE ==
[~2017-10-04] MED LIST changes: -ATOR1TAB18 PO; +ATOR80TA45 PO; -D31000CA PO; +[UNRECOGNIZED DRUG - CODE] PO
[2017-10-04 08:31] LABS: AUTOMATED NEUTROPHIL # 3.1 TH/MM3 (1.8-7.7); BASOPHIL % 0.8 % (0.0-2.0); EOSINOPHIL # 0.4 TH/MM3 (0-0.4); EOSINOPHIL % 7.3 % (0.0-4.0); HEMATOCRIT 39.9 % (39.0-51.0); HEMO FLAGS DIFF FINAL; LYMPH % 27.3 % (9.0-44.0); LYMPHOCYTE # 1.5 TH/MM3 (1.0-4.8); MEAN CELL VOLUME 91.9 FL (80.0-100.0); MEAN CORPUSCULAR HEMOGLOBIN 30.5 PG (27.0-34.0); MEAN CORPUSCULAR HGB CONC 33.2 % (32.0-36.0); MONO % 8.6 % (0.0-8.0); PLATELET COUNT 161 TH/MM3 (150-450); RED BLOOD COUNT 4.35 MIL/MM3 (4.50-5.90); RED CELL DISTRIBUTION WIDTH 14.6 % (11.6-17.2); WHITE BLOOD COUNT 5.5 TH/MM3 (4.0-11.0)
[2017-10-04 08:54] LABS: ANION GAP 6 MEQ/L (5-15); AST (GOT) 24 U/L (15-37); BICARBONATE 28.4 MEQ/L (21.0-32.0); BLOOD UREA NITROGEN 20 MG/DL (7-18); CHLORIDE 108 MEQ/L (98-107); GLOMERULAR FILTRATION RATE 63 ML/MIN (>89); GLUCOSE,FASTING 104 MG/DL (74-99); POTASSIUM 3.8 MEQ/L (3.5-5.1); SODIUM (NA) 142 MEQ/L (136-145)
[2017-10-04 09:04] LABS: ALKALINE PHOSPHATASE 90 U/L (45-117); ALT (GPT) 27 U/L (12-78); FREE T3 4.49 PG/ML (2.18-3.98); FREE T4 0.94 NG/DL (0.76-1.46); HDL CHOLESTEROL 47.3 MG/DL (40.0-60.0); LDL CHOLESTEROL 44 MG/DL (0-99); TOTAL BILIRUBIN ADULT 0.6 MG/DL (0.2-1.0)
[2017-10-04 16:33] LABS: HEMOGLOBIN A1a 0.9 %; HEMOGLOBIN A1b 1.6 %; HEMOGLOBIN Ao 85.3 %; HEMOGLOBIN LA1C 2.1 %; HEMOGLOBIN P3 4.1 %
== END ==
LOC: CLAB 08:02
PROVIDERS: ATTEND Internal Medicine Interventional Cardiology
DX: E78.00 Pure hypercholesterolemia, unspecified (principal); I25.10 Atherosclerotic heart disease of native coronary artery without angina pectoris; I10 Essential (primary) hypertension; E10.8 Type 1 diabetes mellitus with unspecified complications; E78.2 Mixed hyperlipidemia; E03.8 Other specified hypothyroidism; R53.83 Other fatigue; Z12.5 Encounter for screening for malignant neoplasm of prostate; Z79.899 Other long term (current) drug therapy
CPT/HCPCS: 36415; 80053; 80061; 82306; 83036; 84439; 84443; 84481; 85025; G0103

== ENCOUNTER → 2017-12-03 | Outpatient (CLI) | payer MEDICARE ==
[2017-12-03 16:14] LABS: AUTOMATED NEUTROPHIL # 4.5 TH/MM3 (1.8-7.7); BASOPHIL % 0.7 % (0.0-2.0); EOSINOPHIL # 0.6 TH/MM3 (0-0.4); EOSINOPHIL % 8.2 % (0.0-4.0); HEMATOCRIT 43.2 % (39.0-51.0); HEMOGLOBIN 15.1 GM/DL (13.0-17.0); LYMPH % 21.4 % (9.0-44.0); LYMPHOCYTE # 1.5 TH/MM3 (1.0-4.8); MEAN CELL VOLUME 89.8 FL (80.0-100.0); MEAN CORPUSCULAR HEMOGLOBIN 31.4 PG (27.0-34.0); MEAN CORPUSCULAR HGB CONC 34.9 % (32.0-36.0); MEAN PLATELET VOLUME 8.4 FL (7.0-11.0); MONO % 6.2 % (0.0-8.0); MONOCYTE # 0.4 TH/MM3 (0-0.9); NEUT % 63.5 % (16.0-70.0); PLATELET COUNT 190 TH/MM3 (150-450); RED BLOOD COUNT 4.81 MIL/MM3 (4.50-5.90); RED CELL DISTRIBUTION WIDTH 13.7 % (11.6-17.2); WHITE BLOOD COUNT 7.1 TH/MM3 (4.0-11.0)
[2017-12-03 16:31] LABS: ALBUMIN 3.9 GM/DL (3.4-5.0); AST (GOT) 17 U/L (15-37); BLOOD UREA NITROGEN 19 MG/DL (7-18); CHLORIDE 103 MEQ/L (98-107); CREATININE 1.22 MG/DL (0.60-1.30); GLOMERULAR FILTRATION RATE 58 ML/MIN (>89); GLUCOSE,FASTING 93 MG/DL (74-99); HEMOGLOBIN A1C 5.5 % (4.3-6.0); SODIUM (NA) 139 MEQ/L (136-145)
[2017-12-03 16:32] LABS: ALT (GPT) 22 U/L (12-78); CHOLESTEROL 130 MG/DL (120-200); TRIGLYCERIDES 50 MG/DL (42-150)
[2017-12-03 16:42] LABS: ALKALINE PHOSPHATASE 101 U/L (45-117); CHOLESTEROL/ HDL RATIO 2.41 RATIO; HDL CHOLESTEROL 53.9 MG/DL (40.0-60.0); LDL CHOLESTEROL 66 MG/DL (0-99); THYROXINE (T4) 8.2 MCG/DL (4.5-12.1); TOTAL PROTEIN 8.1 GM/DL (6.4-8.2)
== END ==
LOC: CLAB 15:32
PROVIDERS: ATTEND Family Medicine
DX: I10 Essential (primary) hypertension (principal); E10.8 Type 1 diabetes mellitus with unspecified complications; E78.2 Mixed hyperlipidemia; E03.8 Other specified hypothyroidism; Z79.899 Other long term (current) drug therapy
CPT/HCPCS: 36415; 80053; 80061; 83036; 84436; 84443; 84480; 85025

== ENCOUNTER → 2018-04-20 | Outpatient (CLI) | payer MEDICARE ==
[2018-04-20 10:21] LABS: BASOPHIL % 0.9 % (0.0-2.0); EOSINOPHIL # 0.5 TH/MM3 (0-0.4); EOSINOPHIL % 8.9 % (0.0-4.0); HEMATOCRIT 40.5 % (39.0-51.0); HEMOGLOBIN 13.7 GM/DL (13.0-17.0); LYMPH % 28.6 % (9.0-44.0); LYMPHOCYTE # 1.6 TH/MM3 (1.0-4.8); MEAN CELL VOLUME 91.5 FL (80.0-100.0); MEAN CORPUSCULAR HEMOGLOBIN 31.1 PG (27.0-34.0); MEAN CORPUSCULAR HGB CONC 33.9 % (32.0-36.0); MEAN PLATELET VOLUME 8.5 FL (7.0-11.0); MONO % 6.7 % (0.0-8.0); MONOCYTE # 0.4 TH/MM3 (0-0.9); NEUT % 54.9 % (16.0-70.0); PLATELET COUNT 197 TH/MM3 (150-450); RED BLOOD COUNT 4.43 MIL/MM3 (4.50-5.90); RED CELL DISTRIBUTION WIDTH 13.2 % (11.6-17.2); WHITE BLOOD COUNT 5.4 TH/MM3 (4.0-11.0)
[2018-04-20 11:05] LABS: ALBUMIN 3.7 GM/DL (3.4-5.0); AST (GOT) 26 U/L (15-37); BICARBONATE 25.2 MEQ/L (21.0-32.0); BLOOD UREA NITROGEN 21 MG/DL (7-18); CALCIUM 9.5 MG/DL (8.5-10.1); CHLORIDE 110 MEQ/L (98-107); CHOLESTEROL 110 MG/DL (120-200); GLOMERULAR FILTRATION RATE 65 ML/MIN (>89); GLUCOSE,FASTING 113 MG/DL (74-99); SODIUM (NA) 143 MEQ/L (136-145)
[2018-04-20 11:17] LABS: ALKALINE PHOSPHATASE 94 U/L (45-117); ALT (GPT) 28 U/L (12-78); CHOLESTEROL/ HDL RATIO 2.42 RATIO; HDL CHOLESTEROL 45.3 MG/DL (40.0-60.0); LDL CHOLESTEROL 56 MG/DL (0-99); THYROXINE (T4) 7.3 MCG/DL (4.5-12.1); TOTAL PROTEIN 7.7 GM/DL (6.4-8.2); TRIGLYCERIDES 45 MG/DL (42-150)
[2018-04-20 11:18] LABS: TOTAL BILIRUBIN ADULT 0.4 MG/DL (0.2-1.0)
== END ==
LOC: CLAB 09:52
PROVIDERS: ATTEND Family Medicine
DX: I25.118 Atherosclerotic heart disease of native coronary artery with other forms of angina pectoris (principal); E10.65 Type 1 diabetes mellitus with hyperglycemia; E78.2 Mixed hyperlipidemia; E03.8 Other specified hypothyroidism; E55.9 Vitamin D deficiency, unspecified; I11.9 Hypertensive heart disease without heart failure; E78.00 Pure hypercholesterolemia, unspecified; I48.0 Paroxysmal atrial fibrillation; I25.9 Chronic ischemic heart disease, unspecified; Z79.899 Other long term (current) drug therapy
CPT/HCPCS: 36415; 80053; 80061; 82306; 84436; 84443; 84480; 85025